=== PATIENT | male | born 2005 | race Caucasian/White ===

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

== ENCOUNTER 2023-10-27 07:14 | Outpatient (CLI) | payer OTHER | END 2023-10-27 23:59 | disposition critical access hospital (66) | LOC: EMS 07:14 | PROVIDERS: ATTEND Emergency Medicine | DX: J45.909 Unspecified asthma, uncomplicated (principal) | CPT/HCPCS: A0425; A0427 ==

== ENCOUNTER 2023-10-27 07:31 | Emergency (ER) | payer OTHER ==
--- NOTE | 2023-10-27 07:40 | ED Physician Documentation ---
History of Present Illness - Stated complaint Stated Complaint: ASTHMA ATTACK - History obtained from History obtained from: Patient, EMS - Additonal information Additional information: The patient comes to the emergency department via EMS for chief complaint of asthma attack for the last couple of days. He does not really know what set it off except that he states that he did vape although he has vaped occasionally before without having any exacerbation. The patient states that he only takes an albuterol inhaler as needed. He has a history of chronic nasal congestion and postnasal drip states this has not been any worse lately. He has not been sick with anything recently. No changes in his meds. No smoke exposure. Medics report the patient's oxygen saturation was 81% on room air when they picked him up on that he has received IV Solu-Medrol, DuoNeb, and [id number] albuterol nebulizer treatments since they picked him up. He has been on 4 L of oxygen per nasal cannula with sats in the low to mid 90s. No other complaints at this time. PD PAST MEDICAL HISTORY - Past Medical History Cardiovascular: None Respiratory: Asthma Neuro: None Endocrine/Autoimmune: None GI: None : None HEENT: None Psych: None Musculoskeletal: None Derm: None - Past Surgical History Past Surgical History: Yes - Present Medications Home Medications: Ambulatory Orders Medication Instructions Recorded Confirmed Albuterol Sulfate [Proair Hfa 2 puffs IH Q6HR PRN 02/20/16 10/27/23 Inhaler] predniSONE [Deltasone] 10 mg PO [id number] #42 tab 10/27/23 10/27/23 - Allergies Allergies/Adverse Reactions: Allergies Allergy/AdvReac Type Severity Reaction Status Date / Time No Known Drug Allergies Allergy Verified 10/27/23 11:29 - Social History Does the pt smoke?: No Smoking Status: Never smoker Does the pt drink ETOH?: No Does the pt have substance abuse?: No - Immunizations Immunizations are current?: Yes - POLST Patient has POLST: No PD ED PE NORMAL - Vitals Vital signs reviewed: Yes - General General: Alert and oriented X 3, Well developed/nourished, Other (Moderate respiratory distress, visibly labored respirations,) - HEENT HEENT: Atraumatic, EOMI, Moist mucous membranes - Neck Neck: Supple, no meningeal sign - Cardiac Cardiac: No murmur, Other (Tachycardic rate regular rhythm) - Respiratory Respiratory: Other (Moderate expiratory wheezes with moderately decreased air movement bilaterally. Moderate respiratory distress, speaking in phrases. Labored respirations with prolonged expiratory phase.) - Abdomen Abdomen: Soft, Non tender, Non distended - Derm Derm: Normal color, Warm and dry, No rash - Extremities Extremities: No deformity, No edema, No calf tenderness / cord - Neuro Neuro: Other (Alert, grossly intact) - Psych Psych: Normal mood, Normal affect Results - Vitals Vitals: Oxygen O2 Source Room air Oxygen Flow Rate 3 - Labs Labs: Laboratory Tests 10/27/23 10/27/23 07:49 07:49 WBC 10.0 RBC 5.56 Hgb 17.0 Hct 48.5 MCV 87.2 MCH 30.6 MCHC 35.1 RDW 12.8 Plt Count 238 MPV 9.0 Neut # (Auto) 7.8 H Lymph # (Auto) 0.8 L Moore # (Auto) 0.9 Eos # (Auto) 0.3 Baso # (Auto) 0.1 Absolute Nucleated RBC 0.00 Nucleated RBC % 0.0 Sodium 138 Potassium 4.2 Chloride 104 Carbon Dioxide 27 Anion Gap 7.0 BUN 11 Creatinine 0.9 Estimated GFR (MDRD) 108 Glucose 148 H Calcium 9.4 Total Bilirubin 0.9 AST 17 ALT 18 Alkaline Phosphatase 64 Total Protein 7.4 Albumin 4.8 Globulin 2.6 Albumin/Globulin Ratio 1.8 Lipase < 10 L PD Medical Decision Making - ED course Complexity details: reviewed results, re-evaluated patient, considered differential, d/w patient ED course: I evaluated the patient immediately upon arrival in the emergency department with EMS. He was in significant respiratory distress but was sitting up and able to talk to us. The patient had already received a DuoNeb and 2 albuterol treatments en route. He had also received Solu-Medrol. I ordered 2 g of magnesium for the patient, as well as continuous albuterol nebs and another duoneb. The patient was also given half milligram of Ativan. The patient was significantly improved on reevaluation, With O2 sats around 94% on room air. He did still have some wheezing and said he was not sure if he was ready to go home, however. He was observed in the emergency department and in the meantime had labs and chest x-ray done, all of which were unremarkable. I went and reevaluated him again and although his lungs were fairly clear, he still had some pursed lipped breathing. I ordered another DuoNeb for him and on reevaluation, the patient seemed to feel quite a bit better. He stated he thought he could go home now. Respiratory therapist give him a spacer and a peak flow meter and I have also sent in a prescription for prednisone for him. We have discussed that he should do 2 puffs every 4 hours of his albuterol until he feels he is doing much better. We have discussed the usual indications for return. - Critical Care Time(min): 30 Comments: Critical care time was necessary, due to high probability of imminent decline and , due to significant respiratory distress, secondary to asthma exacerbation. Time Includes: Direct patient care, Review records, Reassess patient, Document care, Coordinate care, See progress note Data interpretation: Labs, Pulse ox, CXR, Cardiac output, See progress note Departure - Departure Disposition: Home, Self Care Clinical Impression: Asthma exacerbation Qualifiers: Asthma severity: moderate Asthma persistence: persistent Qualified Code(s): J45.41 - Moderate persistent asthma with (acute) exacerbation Condition: Stable Instructions: Asthma Dc Prescriptions: predniSONE [Deltasone] 10 mg PO [id number] #42 tab Comments: Your chest x-ray looks good. You have been treated with multiple breathing treatments as well as a dose of steroids this morning and have improved quite a bit. You will most likely continue to improve over the next few days to get back to your baseline. Please pick your prescription for steroids up at the [facility] pharmacy today and take your next dose as soon as you get the meds. You should take 2 puffs of your albuterol inhaler every 4 hours during waking hours. Please use the spacer provided. You should also use your peak flow incentive spirometer to help exercise your lungs. Please schedule a follow-up with your primary doctor if you are continuing to have more issues with your asthma. If your breathing becomes very bad again, please return to the emergency department. Forms: PCP List Discharge Date/Time: 10/27/23 10:03
[2023-10-27 07:44] VITALS: O2SAT 93
[2023-10-27] MEDS: MAGNESIUM SULFATE 2 GRAM 2 GM/50 ML BAG IV ONE (07:46)
[2023-10-27] MEDS: LORazepam 2 MG/ML VIAL IVP STA (07:46)
[2023-10-27] MEDS: SODIUM CHLORIDE 0.9% 1,000 ML IV STA (07:46)
[2023-10-27 08:05] LABS: BASOPHILS # (AUTO) 0.1 10^3/uL (0.0-0.1); BASOPHILS % (AUTO) 1.3 %; EOSINOPHILS # (AUTO) 0.3 10^3/uL (0.0-0.7); EOSINOPHILS % (AUTO) 3.3 %; HCT - HEMATOCRIT 48.5 % (42.0-52.0); LYMPHOCYTES # (AUTO) 0.8 10^3/uL (1.5-3.5); LYMPHOCYTES % (AUTO) 7.5 %; MEAN CORPUSCULAR HEMOGLOBIN 30.6 pg (27.0-31.0); MEAN CORPUSCULAR HGB CONC 35.1 g/dL (32.0-36.0); MEAN CORPUSCULAR VOLUME 87.2 fL (80.0-94.0); MONOCYTES # (AUTO) 0.9 10^3/uL (0.0-1.0); MONOCYTES % (AUTO) 8.9 %; NEUTROPHILS # (AUTO) 7.8 10^3/uL (1.5-6.6); NEUTROPHILS % (AUTO) 78.8 %; PLT - PLATELET COUNT 238 10^3/uL (130-450); RED BLOOD COUNT 5.56 10^6/uL (4.70-6.10); RED CELL DISTRIBUTION WIDTH 12.8 % (12.0-15.0)
--- NOTE | 2023-10-27 08:08 | XRAY Report ---
PROCEDURE: Chest 1V INDICATIONS: dyspnea TECHNIQUE: One view of the chest was acquired. COMPARISON: 10/17/2020 FINDINGS: Surgical changes and devices: None. Lungs and pleura: No dense airspace disease or pleural effusions Mediastinum: Heart size is normal and unchanged Bones and chest wall: Unremarkable IMPRESSION: No acute radiographic abnormality on this limited single view study. Reviewed by: Cahs Rosario MD on 10/27/2023 8:07 AM PDT Approved by: Chas Rosario MD on 10/27/2023 8:07 AM PDT Station ID: [id number]
[2023-10-27 08:09] LABS: ALBUMIN 4.8 g/dL (3.2-5.5); ALBUMIN/GLOBULIN RATIO 1.8 (1.0-2.2); ALKALINE PHOSPHATASE 64 IU/L (42-121); ALT ALANINE AMINOTRANSFERASE 18 IU/L (10-60); AST ASPARTATE AMINOTRANSFERASE 17 IU/L (10-42); BILIRUBIN,TOTAL 0.9 mg/dL (0.2-1.0); BUN - BLOOD UREA NITROGEN 11 mg/dL (6-20); CALCIUM 9.4 mg/dL (8.5-10.3); CARBON DIOXIDE - CO2 27 mmol/L (21-32); CHLORIDE 104 mmol/L (101-111); CREATININE 0.9 mg/dL (0.6-1.3); GFR - MDRD 108 (>89); GLUCOSE 148 mg/dL (74-104); POTASSIUM 4.2 mmol/L (3.5-4.5); SODIUM 138 mmol/L (135-145); TOTAL PROTEIN 7.4 g/dL (6.4-8.9)
[2023-10-27 08:10] LABS: LIPASE < 10 U/L (11-82)
[2023-10-27] MEDS: IPRATROPIUM/ALBUTEROL 3 ML NEB INH STA (08:46)
[2023-10-27 10:10] VITALS: BP 105/92
== END 2023-10-27 10:03 | disposition home or self-care (01) ==
LOC: ED 07:31
DX: J45.41 Moderate persistent asthma with (acute) exacerbation (principal)
CPT/HCPCS: 36415; 80053; 83690; 85025; 94640; 94664; 96361; 96374; 96375; 99291

== ENCOUNTER 2023-10-27 11:09 | Observation (INO) | payer OTHER ==
--- NOTE | 2023-10-27 12:08 | ED Physician Documentation ---
PD HPI DYSPNEA - Stated complaint Stated Complaint: SOA,ASTHMA ATTACK - Chief complaint Chief Complaint: Resp - History obtained from History obtained from: Patient, EMS - Additional information Additional information: The patient returns to the emergency department chief complaint of shortness of breath and dyspnea on exertion. He was seen earlier today for a fairly significant asthma exacerbation in which his saturation was 81% on room air when medics picked him up. He was treated with a total of 4 nebulizer treatments and Solu-Medrol and improved quite a bit though he was still having some wheezing and sats were in the lower 90s. However, he felt well enough to go home and was discharged with plan to use his MDI 2 puffs every 4 hours and take a prednisone taper. 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 His mother brought him back in here. Patient states he is fine if he is just sitting still. However, as soon as he tries to do anything, he gets quite short of breath. Please see my note from his previous visit for further details. No other complaints at this time. PD PAST MEDICAL HISTORY - Past Medical History Past Medical History: Yes Cardiovascular: None Respiratory: Asthma Neuro: None Endocrine/Autoimmune: None GI: None : None HEENT: None Psych: None Musculoskeletal: None Derm: None - Past Surgical History Past Surgical History: Yes - Present Medications Home Medications: Ambulatory Orders Medication Instructions Recorded Confirmed Albuterol Sulfate [Proair Hfa 2 puffs IH Q6HR PRN 02/20/16 10/27/23 Inhaler] predniSONE [Deltasone] 10 mg PO [id number] #42 tab 10/27/23 10/27/23 - Allergies Allergies/Adverse Reactions: Allergies Allergy/AdvReac Type Severity Reaction Status Date / Time No Known Drug Allergies Allergy Verified 10/27/23 11:29 - Social History Does the pt smoke?: No Smoking Status: Never smoker Does the pt drink ETOH?: No Does the pt have substance abuse?: No - Immunizations Immunizations are current?: Yes - POLST Patient has POLST: No PD ED PE NORMAL - Vitals Vital signs reviewed: Yes - General General: Alert and oriented X 3, Well developed/nourished, Other (Mildly labored respirations, otherwise no acute distress.) - HEENT HEENT: Atraumatic, EOMI, Moist mucous membranes - Neck Neck: Supple, no meningeal sign - Cardiac Cardiac: RRR, No murmur - Respiratory Respiratory: Other (Moderate wheezing and rhonchi bilaterally and diffusely, mildly labored respirations.) - Abdomen Abdomen: Soft, Non tender, Non distended - Derm Derm: Normal color, Warm and dry, No rash - Extremities Extremities: No deformity - Neuro Neuro: Other (Alert and grossly oriented.) - Psych Psych: Normal mood, Normal affect Results - Vitals Vitals: Oxygen O2 Source Room air Oxygen Flow Rate 2 - Labs Labs: Laboratory Tests 10/27/23 12:38 Nasal Adenovirus (PCR) NOT DETECTED Nasal B. parapertussis DNA (PCR) NOT DETECTED Nasal Coronavir 229E PCR NOT DETECTED Nasal Coronavir HKU1 PCR NOT DETECTED Nasal Coronavir NL63 PCR NOT DETECTED Nasal Coronavir OC43 PCR NOT DETECTED Nasal Enterovir/Rhinovir PCR DETECTED A Nasal Influenza B PCR NOT DETECTED Nasal Influenza A PCR NOT DETECTED Nasal Parainfluen 1 PCR NOT DETECTED Nasal Parainfluen 2 PCR NOT DETECTED Nasal Parainfluen 3 PCR NOT DETECTED Nasal Parainfluen 4 PCR NOT DETECTED Nasal RSV (PCR) NOT DETECTED Nasal B.pertussis DNA PCR NOT DETECTED Nasal C.pneumoniae (PCR) NOT DETECTED Ruben Human Metapneumo PCR NOT DETECTED Nasal M.pneumoniae (PCR) NOT DETECTED Nasal SARS-CoV-2 (PCR) NOT DETECTED PD Medical Decision Making - ED course Complexity details: reviewed results, re-evaluated patient, considered differential, d/w patient, d/w family, d/w principal consultant ED course: The patient was treated with a DuoNeb and a dose of Decadron immediately upon arrival in the emergency department. He had just been here with a fairly severe asthma exacerbation and had been treated extensively while in the emergency department, including multiple nebulizers, IV steroids, and IV magnesium. The patient had not been able to tolerate even mild exertion in the form of walking into the pharmacy without being too tired to stand up and wait in line. His oxygen saturations were low to mid 90s on room air in the examination room, but when he ambulated to the bathroom and back, he was found to have an oxygen saturation of 87 to 88% on room air with pursed lip breathing and labored respirations. I felt he should be admitted to the hospital as he had failed outpatient treatment and had a very low tolerance for basic movement without significant desaturation. I spoke with Dr. Martinez, our on-call hospitalist, who agreed to admit the patient to his service. Departure - Departure Disposition: ED Place in Observation Clinical Impression: Hypoxia Asthma exacerbation Qualifiers: Asthma severity: moderate Asthma persistence: persistent Qualified Code(s): J45.41 - Moderate persistent asthma with (acute) exacerbation Condition: Serious Discharge Date/Time: 10/27/23 13:18
[2023-10-27] MEDS: ALBUTEROL NEB 2.5 MG/3 ML INH STA (12:19)
[2023-10-27] MEDS: IPRATROPIUM/ALBUTEROL 3 ML NEB INH STA (12:19)
[2023-10-27] MEDS: DEXAMETHASONE 10 MG/ML VIAL IV STA (12:31)
[2023-10-27] MEDS ORDERED: DEXAMETHASONE 10 MG/ML VIAL ONE (12:33)
[2023-10-27] MEDS ORDERED: ONDANSETRON 4 MG/2 ML VIAL IVP PRN (12:55)
[2023-10-27] MEDS ORDERED: ONDANSETRON ODT 4 MG TABLET TL PRN (12:55)
[2023-10-27] MEDS ORDERED: SODIUM CHLORIDE FLUSH 0.9% 10 ML SYRINGE IVP PRN (12:55)
--- NOTE | 2023-10-27 13:08 | HISTORY & PHYSICAL EXAMINATION ---
Chief Complaint - Chief Complaint Chief Complaint: I coulnd't breath History of Present Illness - Admitted From Admitted From:: [facility] Emergency Department - History Obtained From Records Reviewed: EMR History obtained from: Patient and mother Exam Limitations: None - History of Present Illness HPI Comment/Other: Joshua Gil is a 18 year old male with history of asthma who presents with shortness of breath. The patient indicates that 2 days ago, on Tuesday 10/24, he developed a mild sore throat that he described as scratchy in nature. He denied having any fevers, chills, rhinorrhea, cough, nausea, vomiting, diarrhea or other infectious symptoms. He denied having any sick contacts as far as he was aware. Yesterday morning he started to develop shortness of breath and wheezing, with his shortness of breath being significantly worse with exertion. He still went to work, where he works with "[employer]" where he is exposed to secondhand smoke frequently. He denies any chemical exposure however throughout the day he did have continued breathing difficulties. This was associated with a cough that was nonproductive though his sore throat had resolved and he still had no other infectious symptoms. After returning home for the evening he fell asleep but would wake up every couple hours due to breathing difficulty, using his inhaler to help relieve his wheezing. This morning, around 6 AM, his roommate noticed that he was breathing very heavily at rest and the patient indicated he wanted EMS called. He denied having any chest pain at the time but he was too short of breath to ambulate even while using his albuterol. EMS found him to be hypoxic to 81% on room air and brought him to the emergency department. In the emergency department he initially required supplemental oxygen and he was given IV Solu-Medrol as well as multiple [id number] nebulizer treatments, a total of 4 over short period of time. He was also given IV magnesium for his bronchospasm. His lab workup was unremarkable and his chest x-ray was negative for any focal infiltrate. He improved with those therapies and he was di scharged home with a prescription for prednisone that was sent to his local [facility] pharmacy. 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 He went back up to the car where his mother was waiting and he still was symptomatic with dyspnea thus he was brought back to the ER. Here he was satting 90 to 92% on room air but with exertion he would drop down to 87%. He was given additional steroids and breathing treatments and placed in observation for further care. History - Past Medical History Cardiovascular: reports: None Respiratory: reports: Asthma Neuro: reports: None Endocrine/Autoimmune: reports: None GI: reports: None : reports: None HEENT: reports: None Psych: reports: None Musculoskeletal: reports: None Derm: reports: None MRSA Hx?: No - Past Surgical History Other past surgical history: Adenoidectomy - Family & Social History Family History: Mother: Alive and Well, Asthma, Father: Alive and Well Living arrangement: At home Living Situation: With friend(s) - Substance History Use: Uses substance without health or social issues: NONE - POLST Patient has POLST: No Meds/Allgy - Home Medications Home Medications: Ambulatory Orders Medication Instructions Recorded Confirmed Albuterol Sulfate [Proair Hfa 2 puffs IH Q6HR PRN 02/20/16 10/27/23 Inhaler] predniSONE [Deltasone] 10 mg PO [id number] #42 tab 10/27/23 - Allergies Allergies/Adverse Reactions: Allergies Allergy/AdvReac Type Severity Reaction Status Date / Time No Known Drug Allergies Allergy Verified 10/27/23 11:29 Review of Systems - Constitutional Constitutional: denies: Fever, Chills, Malaise, Weakness, Diaphoresis, Night sweats - Eyes Eyes: denies: Irritation, Blurred vision - Ears, Nose & Throat Ears, Nose & Throat: reports: Sore throat, Hoarseness. denies: Nasal discharge, Nasal obstruction, Nasal congestion, Mouth lesions - Cardiovascular Cariovascular: denies: Palpitations, Chest pain, Lightheadedness - Respiratory Respiratory: reports: Cough, Wheezing, SOB at rest, SOB with exertion. denies: Sputum production, Pleuritic pain - Gastrointestinal Gastrointestinal: denies: Diarrhea, Nausea, Vomiting - Genitourinary Genitourinary: denies: Dysuria, Frequency - Musculoskeletal Musculoskeletal: denies: Muscle pain, Muscle aches - Integumentary Integumentary: denies: Rash, Pruritis, Lesions - Neurological Neurological: denies: General weakness, Headache - Psychiatric Psychiatric: denies: Depression - Endocrine Endocrine: denies: Polyuria, Polydypsia - Hematologic/Lymphatic Hematologic/Lymphatic: denies: Recurrent infections - All Other Systems All Other Systems: reports: Reviewed and negative Exam - Vital Signs Reviewed Vital Signs: Yes Vital Signs: Vital Signs x48h Temp Pulse Resp BP Pulse Ox 10/27/23 12:42 114 H 22 10/27/23 12:24 98 20 112/65 97 10/27/23 12:09 111 H 22 88 L 10/27/23 11:24 37.1 C 122 H 20 131/83 H 92 - Physical Exam General Appearance: positive: No acute distress, Alert Eyes Bilateral: positive: Normal inspection, PERRL, EOMI ENT: positive: No signs of dehydration, Pharyngeal erythema (Mild posterior oropharyngeal erythema noted) Neck: positive: Nml inspection, Thyroid nml, No JVD, Trachea midline Respiratory: positive: Other (No respiratory distress at rest but is dyspneic with minimal exertion. Fair air movement bilaterally with prolonged expiratory phase and end expiratory wheezing noted throughout. No crackles or rhonchi.) Cardiovascular: positive: No murmur, No gallop, Tachycardia Peripheral Pulses: positive: 2+ Abdomen: positive: Non-tender, No organomegaly, Nml bowel sounds, No distention Skin: positive: Color nml, No rash, Warm, Dry Extremities: positive: Nml appearance, No pedal edema Neurologic/Psychiatric: positive: Oriented x3, CN's nml (2-12), Motor nml Sepsis Event Note (H) - Evaluation Current Stage of Sepsis: Ruled out Conclusion/Plan - Problem List (1) Asthma with acute exacerbation Conclusion/Plan: At baseline he indicates that his asthma is well-controlled however he does also state that he usually uses his albuterol every morning "to get the day starte d". He denies significant wheezing throughout the day on most days. His current asthma exacerbation may be viral in nature versus environmental from pollen/allergens plus secondhand smoke. -Given his [id number] emergency department visits and hypoxia with exertion, will place in observation overnight in the hospital. -Can use prednisone 60 mg daily starting tomorrow as he is going to receive a nother steroid dose in the emergency department now. -Every 4 hour albuterol nebs while awake. Can use as needed albuterol nebs in between. -Viral PCR panel pending. No need for antibiotic therapy at this time. (2) Sore throat Conclusion/Plan: This occurred 48 hours ago and resolved 24 hours ago. No other infectious symptoms were noted at the time. -Viral PCR panel pending. (3) Hypoxia Conclusion/Plan: He is currently hypoxic only with exertion but does not require supplemental oxygen at rest. -Treat asthma as noted above. Tomorrow we can ambulate him and assess his oxygen levels if indicated. - Lab Results Lab results reviewed: Yes Other Lab Results: WBC 10.0, hemoglobin 17.0, platelet 238 Sodium 138, potassium 4.2, chloride 104, CO2 27, BUN 11, creatinine 0.9, glucose 148, calcium 9.4 Total bilirubin 0.9, AST 17, ALT 18, alkaline phosphatase 64, total protein 7.4, albumin 4.8 - Diagnostic Imaging Results Diagnostic Imaging Results Comments: Chest X-ray: No acute radiographic abnormality on this limited single view study. Core Measures - Anticipated LOS I expect patient to be DC'd or transferred within 96 hours.: Yes - DVT/VTE - Prophylaxis VTE/DVT Device ordered at admit?: No Not Ordered - Low Risk: Very low risk
[2023-10-27 13:36] LABS: B. PARAPERTUSSIS- RESP PCR PAN NOT DETECTED; B. PERTUSSIS- RESP PCR PANEL NOT DETECTED; C. PNEUMONIAE- RESP PCR PANEL NOT DETECTED; CORONAVIRUS 229E-RESP PCR NOT DETECTED; CORONAVIRUS HKU1-RESP PCR NOT DETECTED; CORONAVIRUS NL63-RESP PCR NOT DETECTED; CORONAVIRUS OC43-RESP PCR NOT DETECTED; HUMAN METAPNEUMOVIRUS NOT DETECTED; INFLUENZA A- RESP PCR PANEL NOT DETECTED; INFLUENZA B - RESP PCR PANEL NOT DETECTED; M. PNEUMONIAE- RESP PCR PANEL NOT DETECTED; PARAINFLUENZA VIRUS 1 NOT DETECTED; PARAINFLUENZA VIRUS 2 NOT DETECTED; PARAINFLUENZA VIRUS 3 NOT DETECTED; PARAINFLUENZA VIRUS 4 NOT DETECTED; RHINOVIRUS/ENTEROVIRUS DETECTED; RSV- RESP PCR PANEL NOT DETECTED; SARS-CoV-2 -RESP PCR PANEL NOT DETECTED
[2023-10-27] MEDS: ALBUTEROL NEB 2.5 MG/3 ML INH SCH (14:51)
--- NOTE | 2023-10-27 15:31 | PHARMACY PROGRESS NOTE ---
- Best Possible Medication History Admit Date and Time: 10/27/23 1257 Processed by: Nursing Medications reviewed in ED?: Yes Medication History completed: Yes Secondary Source(s): Insurance records, Previous admit records (meds confirmed by ER nurse at ER visit earlier this morning) As the person ultimately responsible for medication therapy, providers are able to order a medication from an existing home medication list in [facility] via the "Reconcile Routine" prior to Confirmation of that medication by clerical support. Such practice is discouraged except when the physician, in their clinical judgment, deems that a medical need exists for a medication without regard to previous use.
[2023-10-27] MEDS: SODIUM CHLORIDE FLUSH 0.9% 10 ML SYRINGE IVP SCH (22:14)
[2023-10-28] MEDS: ACETAMINOPHEN 325 MG TABLET PO PRN (04:49)
[2023-10-28] MEDS ORDERED: BENZOCAINE/MENTHOL LOZENGE MM PRN (05:01)
--- NOTE | 2023-10-28 07:09 | PROVIDER PROGRESS NOTE ---
Subjective - Prog Note Date Prog Note Date: 10/28/23 Prog Note Time: 07:09 - Subjective Pt reports feeling: Improved Subjective: He indicates that he feels better today with less shortness of breath and wheezing and slept well overnight. Despite him subjectively feeling better he did develop increased hypoxia requiring 3 to 4 L of oxygen overnight. His viral PCR was positive for rhinovirus but no other pathogen. He denies having any sputum production, fevers, chills, orthopnea, nausea, vomiting or diarrhea. He does still have a mild sore throat. Objective - Vital Signs/Intake & Output Reviewed Vital Signs: Yes Vital Signs: Vital Signs x48h Temp Pulse Pulse Resp BP Pulse Ox O2 Flow Rate 10/28/23 04:55 110 H 28 H 3.5 10/28/23 04:33 36.8 C 96 18 132/85 H 94 3.5 10/28/23 00:20 74 28 H 3.5 10/28/23 00:12 36.9 C 98 21 130/87 H 93 3.5 Intake & Output: Intake & Output 10/25/23 10/26/23 10/27/23 10/28/23 23:59 23:59 23:59 23:59 Intake Total 300 Balance 300 - Objective General Appearance: positive: No acute distress, Alert Eyes Bilateral: positive: Normal inspection, PERRL, EOMI ENT: positive: No signs of dehydration, Pharyngeal erythema Neck: positive: Nml inspection, Thyroid nml, No JVD, Trachea midline Respiratory: positive: No respiratory distress, Wheezes. negative: Rales, Rhonchi Cardiovascular: positive: Regular rate & rhythm, No murmur, No gallop Abdomen: positive: Non-tender, No organomegaly, Nml bowel sounds, No distention Back: positive: Nml inspection Skin: positive: Color nml, No rash, Warm, Dry Extremities: positive: Nml appearance, No pedal edema Neurologic/Psychiatric: positive: Oriented x3, CN's nml (2-12), Motor nml - Lab Results Fish Bones: 10/28/23 07:39 10/28/23 07:39 Other Labs: Lab Results x24hrs 10/27/23 Range/Units 12:38 Nasal Adenovirus (PCR) NOT DETECTED Nasal B. parapertussis DNA (PCR) NOT DETECTED Nasal Coronavir 229E PCR NOT DETECTED Nasal Coronavir HKU1 PCR NOT DETECTED Nasal Coronavir NL63 PCR NOT DETECTED Nasal Coronavir OC43 PCR NOT DETECTED Nasal Enterovir/Rhinovir PCR DETECTED A Nasal Influenza B PCR NOT DETECTED Nasal Influenza A PCR NOT DETECTED Nasal Parainfluen 1 PCR NOT DETECTED Nasal Parainfluen 2 PCR NOT DETECTED Nasal Parainfluen 3 PCR NOT DETECTED Nasal Parainfluen 4 PCR NOT DETECTED Nasal RSV (PCR) NOT DETECTED Nasal B.pertussis DNA PCR NOT DETECTED Nasal C.pneumoniae (PCR) NOT DETECTED Ruben Human Metapneumo PCR NOT DETECTED Nasal M.pneumoniae (PCR) NOT DETECTED Nasal SARS-CoV-2 (PCR) NOT DETECTED - Diagnostic Imaging Diagnostic Imaging Comments: Chest X-ray: No acute radiographic abnormality on this limited single view study. Sepsis Event Note (H) - Evaluation Current Stage of Sepsis: Ruled out Assessment/Plan - Problem List (1) Asthma with acute exacerbation Impression: At baseline he indicates that his asthma is well-controlled however he does also state that he usually uses his albuterol every morning "to get the day started". He denies significant wheezing throughout the day on most days. His current asthma exacerbation is due to rhinovirus and possible contributions from pollen/allergens plus secondhand smoke. -He is more hypoxic since admission, now requiring 3-4 liters. -Continue rednisone 60 mg daily. Change scheduled nebs to Duonebs. PRN albuterol in between. -Add Singulair 10 mg daily. (2) Acute respiratory failure with hypoxia Impression: He is more hypoxic since admission, secondary to his ongoing asthma exacerbation. -Continue supplemental oxygen and treat has been as noted above. -Will try to wean to room air today if possible. (3) Rhinovirus infection Impression: Main symptom is a sore throat, but this likely resulted in triggering his asthma exacerbation. -Droplet precautions. Supportive measures only.
[2023-10-28 07:51] LABS: BASOPHILS % (AUTO) 0.1 %; EOSINOPHILS % (AUTO) 0.1 %; HCT - HEMATOCRIT 47.6 % (42.0-52.0); HGB - HEMOGLOBIN 16.2 g/dL (14.0-18.0); LYMPHOCYTES # (AUTO) 1.1 10^3/uL (1.5-3.5); LYMPHOCYTES % (AUTO) 8.9 %; MEAN CORPUSCULAR HEMOGLOBIN 29.9 pg (27.0-31.0); MEAN CORPUSCULAR VOLUME 87.8 fL (80.0-94.0); MEAN PLATELET VOLUME 8.9 fL (7.4-11.4); MONOCYTES # (AUTO) 1.5 10^3/uL (0.0-1.0); NEUTROPHILS # (AUTO) 9.5 10^3/uL (1.5-6.6); NEUTROPHILS % (AUTO) 78.6 %; PLT - PLATELET COUNT 257 10^3/uL (130-450); RED BLOOD COUNT 5.42 10^6/uL (4.70-6.10); RED CELL DISTRIBUTION WIDTH 13.1 % (12.0-15.0); WHITE BLOOD COUNT 12.1 x10^3/uL (4.8-10.8)
[2023-10-28 08:03] LABS: CALCIUM 9.9 mg/dL (8.5-10.3); CREATININE 0.8 mg/dL (0.6-1.3); POTASSIUM 4.8 mmol/L (3.5-4.5)
[2023-10-28] MEDS: predniSONE 20 MG TABLET PO SCH (08:25)
[2023-10-28] MEDS: MONTELUKAST 10 MG TABLET PO SCH (08:28)
[2023-10-28] MEDS: IPRATROPIUM/ALBUTEROL 3 ML NEB INH SCH (08:44)
[2023-10-29] MEDS: ALBUTEROL NEB 2.5 MG/3 ML INH PRN (00:15)
[2023-10-29 09:10] VITALS: O2SAT 93
--- NOTE | 2023-10-29 09:21 | Discharge Plan ---
Discharge Plan Problem Reviewed?: Yes Disposition: Home, Self Care Condition: Stable Prescriptions: predniSONE [Deltasone] 60 mg PO DAILY 5 Days #15 tab Albuterol Sulfate [Proair Respiclick] 90 mcg IH Q4H PRN #1 each PRN Reason: Shortness Of Air/Wheezing Montelukast [Singulair] 10 mg PO QPM 30 Days #30 tab Diet: Regular Activity Restrictions: Activity as Tolerated Shower Restrictions: No Driving Restrictions: No Health Concerns: You were admitted to the hospital for an asthma exacerbation, which is when your asthma flares up and causes you to have difficulty breathing along with increased wheezing. In your case the asthma exacerbation was likely due to a rhinovirus infection, which is a viral infection that is known as the "common cold" virus. You do not need any specific treatment for this viral infection but while you are in the hospital you were given steroids as well as frequent breathing treatments and a medication called Singulair was added that helps to decrease the wheezing and sensitivity of your asthma. You initially required oxygen while you are in the hospital but with the steroids and breathing treatments your taken off of this and did not need it at discharge. Be sure to follow-up with your primary care provider for a hospital follow-up, and you can also discuss an asthma action plan with your provider so that we can keep your asthma under appropriate control. Plan of Treatment: You were given several new prescriptions as noted below. When you go home be sure to use your albuterol inhaler every 4 hours (scheduled) for the next 2 days, then starting on Wednesday you can start using it every 4 hours as needed just if you feel increased wheezing or difficulty breathing. Be sure to finish all 5 days of your prednisone even if you start feeling better before the end of the prescription. Additional Instructions or Follow Up instructions: You can return to work on Wednesday, November 01 2023. If you are still feel out of breath on Wednesday, then take another 2-3 days off from work. Please be sure to follow up with your primary care provider as soon as you can get an appointment. No Smoking: If you smoke, Please STOP! Call for help.
[2023-10-29] MEDS ORDERED: ALBUTEROL NEB 2.5 MG/3 ML INH PRN (09:27)
--- NOTE | 2023-10-29 10:18 | DISCHARGE SUMMARY ---
Discharge Summary Admit Date: 10/27/23 Discharge Date: 10/29/23 Discharging Provider: Real Martinez MD Primary Care Provider: [facility] [employer] Condition at Discharge: Stable Discharge Disposition: 01 Home, Self Care - DIAGNOSES Admission Diagnoses: Asthma with Acute Exacerbation Discharge Diagnoses with Status of Each Condition: 1. Asthma with Acute Exacerbation - improving 2. Acute Respiratory Failure with Hypoxia - resolved 3. Rhinovirus Infection - improving - HPI History of Present Illness: Joshua Gil is a 18 year old male with history of asthma who presents with shortness of breath. The patient indicates that 2 days ago, on Tuesday 10/24, he developed a mild sore throat that he described as scratchy in nature. He denied having any fevers, chills, rhinorrhea, cough, nausea, vomiting, diarrhea or other infectious symptoms. He denied having any sick contacts as far as he was aware. Yesterday morning he started to develop shortness of breath and wheezing, with his shortness of breath being significantly worse with exertion. He still went to work, where he works with "[employer]" where he is exposed to secondhand smoke frequently. He denies any chemical exposure however throughout the day he did have continued breathing difficulties. This was associated with a cough that was nonproductive though his sore throat had resolved and he still had no other infectious symptoms. After returning home for the evening he fell asleep but would wake up every couple hours due to breathing difficulty, using his inhaler to help relieve his wheezing. This morning, around 6 AM, his roommate noticed that he was breathing very heavily at rest and the patient indicated he wanted EMS called. He denied having any chest pain at the time but he was too short of breath to ambulate even while using his albuterol. EMS found him to be hypoxic to 81% on room air and brought him to the emergency department. In the emergency department he initially required supplemental oxygen and he was given IV Solu-Medrol as well as multiple [id number] nebulizer treatments, a total of 4 over short period of time. He was also given IV magnesium for his bronchospasm. His lab workup was unremarkable and his chest x-ray was negative for any focal infiltrate. He improved with those therapies and he was discharged home with a prescription for prednisone that was sent to his local [facility] pharmacy. 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 He went back up to the car where his mother was waiting and he still was symptomatic with dyspnea thus he was brought back to the ER. Here he was satting 90 to 92% on room air but with exertion he would drop down to 87%. He was given additional steroids and breathing treatments and placed in observation for further care. - CONSULTS | PROCEDURES Consultations: None Procedures: None - HOSPITAL COURSE Hospital Course: After the patient was admitted to the floor and he required 3 to 4 L of oxygen due to his ongoing asthma exacerbation. He was placed on every 4 hour breathing treatments and continued on 60 mg of prednisone. He continued to have wheezing and Singulair was added as well with symptomatic improvement of his asthma. Over the next 24 hours his oxygen was weaned and went to room air. With this he was able to ambulate without significant dyspnea on exertion. His laboratory workup was unremarkable aside from the fact that his respiratory viral panel was positive for rhinovirus. He did not need any specific therapy for this other than supportive care and this was the most likely trigger for his asthma. He does also have secondhand smoke exposure at his [employer] job, which likely also exposes him to other allergens that can make his asthma worse. He indicates that he does use his albuterol inhaler essentially every day at baseline. He was discharged with 5 more days of 60 mg prednisone and instructions to continue taking his albuterol inhaler every 4 hours for the next 2 days, then can reduce this to every 4 hours as needed for wheezing or shortness of breath. He was also given a prescription for Singulair and advised to follow-up with his PCP after this hospitalization. An asthma action plan can be developed at that time and he may require additional therapies for his asthma due to his frequent use of albuterol. - ALLERGIES Allergies/Adverse Reactions: Allergies Allergy/AdvReac Type Severity Reaction Status Date / Time No Known Drug Allergies Allergy Verified 10/27/23 11:29 - MEDICATIONS Home Medications: Ambulatory Orders Medication Instructions Recorded Confirmed Albuterol Sulfate [Proair 90 mcg IH Q4H PRN #1 each 10/29/23 Respiclick] Montelukast [Singulair] 10 mg PO QPM 30 Days #30 tab 10/29/23 predniSONE [Deltasone] 60 mg PO DAILY 5 Days #15 tab 10/29/23 - PHYSICAL EXAM AT DISCHARGE General Appearance: positive: No acute distress, Alert Eyes Bilateral: positive: Normal inspection, PERRL, EOMI ENT: positive: ENT inspection nml, Pharynx nml, No signs of dehydration Neck: positive: Nml inspection, Thyroid nml, No JVD, Trachea midline Respiratory: positive: No respiratory distress, Wheezes. negative: Rales, Rhonchi Cardiovascular: positive: Regular rate & rhythm, No murmur, No gallop Peripheral Pulses: positive: 2+ Abdomen: positive: Non-tender, No organomegaly, Nml bowel sounds, No distention Back: positive: Nml inspection Skin: positive: Color nml, No rash, Warm, Dry Extremities: positive: Nml appearance, No pedal edema Neurologic/Psychiatric: positive: Oriented x3, CN's nml (2-12), Motor nml, Sensation nml - LABS Result Diagrams: 10/28/23 07:39 10/28/23 07:39 Other Lab Results: Viral PCR: Rhinovirus positive. COVID/Flu/RSV negative. - DIAGNOSTIC IMAGING Diagnostic Imaging Results Comments: Chest X-ray (10/27/23): No dense airspace disease or pleural effusions. Heart size is normal and unchanged. Bones and chest wall are unremarkable. - SEPSIS Current Stage of Sepsis: Ruled out - FOLLOW UP Follow Up: Currently scheduled to follow up with [facility] PCP on November 25, but they are trying to change this to be earlier. - TIME SPENT Time Spent in Discharge (Minutes): 25
[2023-10-29 10:57] VITALS: BP 131/80
== END 2023-10-29 11:17 | disposition home or self-care (01) ==
LOC: ED 11:09 → MS2 12:55
PROVIDERS: ADMIT Hospitalist; ATTEND Hospitalist
DX: J45.41 Moderate persistent asthma with (acute) exacerbation (principal); J96.01 Acute respiratory failure with hypoxia; B34.8 Other viral infections of unspecified site; Z57.31 Occupational exposure to environmental tobacco smoke
CPT/HCPCS: 36415; 71045; 80048; 80053; 83690; 85025; 87633; 94640; 94664; 96361; 96374; 96375; 99285; 99291; A9270; G0378; J2060; J7512